=== PATIENT | male | born 1985 | race Caucasian/White ===

== ENCOUNTER 2016-03-24 08:23 | Outpatient (CLI) | payer OTHER | END 2016-03-24 08:24 | disposition home or self-care (01) | DX: M51.17 Intervertebral disc disorders with radiculopathy, lumbosacral region (principal); M43.17 Spondylolisthesis, lumbosacral region; M48.00 Spinal stenosis, site unspecified ==

== ENCOUNTER 2016-03-24 16:10 | Outpatient (CLI) | payer OTHER | END 2016-03-24 16:11 | disposition home or self-care (01) | DX: M48.00 Spinal stenosis, site unspecified (principal) ==

== ENCOUNTER 2016-05-25 17:54 | Outpatient (CLI) | payer OTHER | END 2016-05-25 17:55 | disposition home or self-care (01) | DX: K76.89 Other specified diseases of liver (principal) ==

== ENCOUNTER 2017-06-06 14:22 | Outpatient (CLI) | payer OTHER ==
[2017-06-06] MEDS ORDERED: GADOBUTROL 15 MMOL/15 ML VIAL ONE (14:47)
[2017-06-06] MEDS ORDERED: GADOBUTROL 15 MMOL/15 ML VIAL IVP ONE (15:32)
--- NOTE | 2017-06-06 18:27 | MRI Report ---
EXAM: RIGHT HAND MRI WITHOUT AND WITH CONTRAST EXAM DATE: 06/06/2017 03:41 PM. CLINICAL HISTORY: HAND SWOLLEN, POSSIBLE RA, INFLAMMATORY POLYARTHROPATHY. COMPARISON: None. TECHNIQUE: Multiplanar, multisequence T1-weighted and fluid-sensitive sequences of the hand before an d after administration of intravenous contrast. IV contrast: 12 cc Gadavist. Other: None. FINDINGS: Bones: No fractures or subluxations. No marrow edema or abnormal enhancement. No bone lesions. Cartilage: The articular cartilage is unremarkable. Ligaments: The visualized collateral ligaments are intact. Tendons: The flexor and extensor tendons are unremarkable. Musculature: No edema or fatty atrophy. Other: No joint effusions or synovitis. The subcutaneous tissues are unremarkable. No abscess or cell ulitis. Small cyst 1.2 cm transverse dimension Boehler aspect distal radius (image 1 series 601). IMPRESSION: No MRI abnormalities in the hand. [facility] SECTION Referring Provider Line: [phone] SITE ID: [id number]
== END 2017-06-06 14:23 | disposition home or self-care (01) ==
LOC: DI 14:22
PROVIDERS: ATTEND Internal Medicine Rheumatology
DX: R22.31 Localized swelling, mass and lump, right upper limb (principal)
CPT/HCPCS: 73220; A9585

== ENCOUNTER 2020-10-16 11:06 | Emergency (ER) | payer OTHER ==
[2020-10-16 11:37] VITALS: BP 178/100
--- NOTE | 2020-10-16 11:48 | ED Physician Documentation ---
History of Present Illness - Stated complaint Stated Complaint: HEMRRHOID PX - Chief complaint Chief Complaint: General - Additonal information Additional information: 34-year-old male presents the emergency department for evaluation about 24 hours acute rectal pain. He reports that 4 days ago he had a bout of bad diarrhea and did not think much of it though he did endorse some rectal tenderness. However over the last 24 hours he noticed a palpable swelling in his rectal area making it difficult to sit. He has been using Preparation H without relief. He does endorse a history of previous hemorrhoids that have resolved with Preparation H. Review of Systems Constitutional: reports: Reviewed and negative Nose: reports: Reviewed and negative Throat: reports: Reviewed and negative Cardiac: reports: Reviewed and negative Respiratory: reports: Reviewed and negative GI: reports: Diarrhea. denies: Abdominal Pain : reports: Other (Rectal pain) Skin: reports: Reviewed and negative Musculoskeletal: reports: Reviewed and negative PD PAST MEDICAL HISTORY - Past Medical History Past Medical History: Yes GI: GERD, Hemorrhoids Musculoskeletal: Chronic back pain - Past Surgical History Past Surgical History: Yes Ortho: Spine surgery - Present Medications Home Medications: Ambulatory Orders Medication Instructions Recorded Confirmed Etodolac 200 mg PO DAILY 08/06/14 08/06/14 Omeprazole 40 mg PO DAILY 08/06/14 08/06/14 methocarbamoL [Robaxin-750] 750 mg PO TID PRN #20 tablet 08/06/14 oxyCODONE [Roxicodone] 5 mg PO BID 08/06/14 08/06/14 oxyCODONE [Roxicodone] 5 mg PO BID #10 tablet 08/06/14 oxyCODONE [Roxicodone] 5 mg PO Q4-6H PRN #15 tablet 11/14/14 predniSONE [Deltasone] 60 mg PO DAILY 5 Days tablet 11/14/14 Hydrocortisone [Anusol-Hc] 30 gm RC TID #30 gm 10/16/20 - Allergies Allergies/Adverse Reactions: Allergies Allergy/AdvReac Type Severity Reaction Status Date / Time anthrax vaccine Allergy Unknown Verified 10/16/20 11:24 - Social History Does the pt smoke?: Yes Smoking Status: Current every day smoker Does the pt drink ETOH?: Yes Does the pt have substance abuse?: No - Immunizations Immunizations are current?: Yes - POLST Patient has POLST: No PD ED PE EXPANDED - General General: Alert, No acute distress - Rectal Rectal: Hemorrhoid (Large 2 cm nonthrombosed external hemorrhoid at 9oclock with pt in left lateral rectus position. Mildly tender to touch. No external e rythema noted anal fissure. No rectal bleeding.) Results - Vitals Vitals: Vital Signs - 24 hr 10/16/20 11:19 Temperature 36.8 C Heart Rate 93 Respiratory 15 Rate Blood Pressure 178/100 H O2 Saturation 99 Oxygen O2 Source Room air PD MEDICAL DECISION MAKING - ED course Complexity details: considered differential, d/w patient ED course: 34-year-old male presents emergency department for evaluation of 24 hours of rectal pain. This follows a bout of diarrhea 3 to 4 days ago. On exam he has a very large but nonthrombosed external hemorrhoid. Unfortunately we would not be able to do an excision of this today. I recommended warm sitz bath's as well as Preparation H. I also recommend increase fiber intake to prevent straining with bowel movements. I have advised him to schedule close follow-up with his PCP as he may benefit in the long-term from referral to a colorectal surgeon. We discussed that once this hemorrhoid is thrombosed he would be a good candidate for thrombectomy. Emergent return precautions were discussed. Departure - Departure Disposition: 01 Home, Self Care Clinical Impression: External hemorrhoid Condition: Stable Record reviewed to determine appropriate education?: Yes Instructions: Anusol Ointment Follow-Up: Jose Sigala ARNP [Primary Care Provider] - Prescriptions: Hydrocortisone [Anusol-Hc] 30 gm RC TID #30 gm Comments: [place] the hemorrhoid that you have has just erupted and is not yet clotted or thrombosed. In order to help manage this I would like you to take a sitz bath for 10 minutes twice a day. I also recommend that you get 25 to 30 g of fiber every day with use of Metamucil this will help soften your stools and prevent you from straining with defecation. I have prescribed hydrocortisone Anusol cream to be used 3 times a day or after each bowel movement. In some cases hemorrhoids as large as years can be excised in which we remove the clot at the bedside but yours is not yet thrombosed. If you feel that it is reach this point in 3 to 4 days you may return to the ER for a second evaluation though there is no guarantee that the provider in the ER would be able to perform this procedure. I do recommend that you have close follow-up with your primary care provider. You may benefit from referral to a colorectal surgeon for longer-term evaluation and management of your hemorrhoids. If any point you develop fevers have bloody bowel movements severe worsening p ain please return to the ER for second look.
== END 2020-10-16 12:32 | disposition home or self-care (01) ==
LOC: ED 11:06
DX: K64.4 Residual hemorrhoidal skin tags (principal); F17.200 Nicotine dependence, unspecified, uncomplicated
CPT/HCPCS: 99282

== ENCOUNTER 2021-02-10 12:49 | Outpatient (CLI) | payer OTHER | END 2021-02-10 12:50 | disposition critical access hospital (66) | LOC: EMS 12:49 | DX: R07.9 Chest pain, unspecified (principal) | CPT/HCPCS: A0425; A0427 ==

== ENCOUNTER 2021-02-10 13:10 | Emergency (ER) | payer OTHER ==
--- NOTE | 2021-02-10 13:28 | ED Physician Documentation ---
PD HPI CHEST PAIN - Stated complaint Stated Complaint: CHEST PX - Chief complaint Chief Complaint: Cardiac - History obtained from History obtained from: Patient - Additional information Additional information: 35-year-old gentleman had a breakthrough case of Covid with symptoms starting on the 10th of this month. It consisted of cough and congestion loss of taste and smell. He was quarantining. Today he was at rest and developed left upper chest tightness with feeling of rapid heart rate and shortness of breath. It is better but not gone now. He did have an episode of [facility] with subsequently negative stress testing. He did travel to [place] in the last couple of weeks. Denies pedal edema or calf pain. Review of Systems Constitutional: denies: Fever, Chills Nose: denies: Rhinorrhea / runny nose, Congestion Cardiac: reports: Chest pain / pressure, Palpitations Respiratory: reports: Dyspnea. denies: Cough PD PAST MEDICAL HISTORY - Past Medical History GI: GERD, Hemorrhoids Musculoskeletal: Chronic back pain - Past Surgical History Past Surgical History: Yes Ortho: Spine surgery - Present Medications Home Medications: Ambulatory Orders Medication Instructions Recorded Confirmed Etodolac 200 mg PO DAILY 08/06/14 08/06/14 Omeprazole 40 mg PO DAILY 08/06/14 08/06/14 methocarbamoL [Robaxin-750] 750 mg PO TID PRN #20 tablet 08/06/14 oxyCODONE [Roxicodone] 5 mg PO BID 08/06/14 08/06/14 oxyCODONE [Roxicodone] 5 mg PO BID #10 tablet 08/06/14 oxyCODONE [Roxicodone] 5 mg PO Q4-6H PRN #15 tablet 11/14/14 predniSONE [Deltasone] 60 mg PO DAILY 5 Days tablet 11/14/14 Hydrocortisone [Anusol-Hc] 30 gm RC TID #30 gm 10/16/20 - Allergies Allergies/Adverse Reactions: Allergies Allergy/AdvReac Type Severity Reaction Status Date / Time anthrax vaccine Allergy Unknown Verified 02/10/21 13:21 - Social History Does the pt smoke?: Yes Smoking Status: Current every day smoker Does the pt drink ETOH?: Yes Does the pt have substance abuse?: No - Immunizations Immunizations are current?: Yes - POLST Patient has POLST: No PD ED PE NORMAL - Vitals Vital signs reviewed: Yes - General General: Alert and oriented X 3, No acute distress - HEENT HEENT: PERRL, EOMI - Cardiac Cardiac: RRR, No murmur - Respiratory Respiratory: No respiratory distress, Clear bilaterally - Abdomen Abdomen: Normal bowel sounds, Soft, Non tender - Back Back: No CVA TTP, No spinal TTP - Derm Derm: Normal color, Warm and dry - Extremities Extremities: No edema, No calf tenderness / cord - Neuro Neuro: Alert and oriented X 3, Normal speech Results - Vitals Vitals: Vital Signs - 24 hr 02/10/21 02/10/21 02/10/21 13:19 14:00 14:30 Temperature 37.4 C Heart Rate 98 97 92 Respiratory 18 19 17 Rate Blood Pressure 162/98 H 137/97 H 145/95 H O2 Saturation 98 94 99 02/10/21 02/10/21 02/10/21 15:00 15:46 16:30 Temperature Heart Rate 95 90 81 Respiratory 18 20 19 Rate Blood Pressure 161/111 H 145/99 H 141/93 H O2 Saturation 97 99 100 02/10/21 17:00 Temperature Heart Rate 84 Respiratory 14 Rate Blood Pressure 140/91 H O2 Saturation 99 Oxygen O2 Source Room air - EKG (time done) 1314 Rate: Rate (enter#) (98) Rhythm: NSR [place]: Normal Intervals: Normal PA QRS: Normal Ischemia: Non specific changes. No: ST elevation c/w ischemia, ST depression Compare to prior EKG: Old EKG unavailable Computer interpretation: Agree with computer - Labs Labs: Laboratory Tests 02/10/21 02/10/21 02/10/21 14:08 14:08 14:08 WBC 7.0 RBC 4.18 L Hgb 12.8 L Hct 36.7 L MCV 87.8 MCH 30.6 MCHC 34.9 RDW 12.5 Plt Count 189 MPV 10.9 Neut # (Auto) 5.1 Lymph # (Auto) 1.3 L [place] # (Auto) 0.5 Eos # (Auto) 0.1 Baso # (Auto) 0.0 Absolute Nucleated RBC 0.00 Nucleated RBC % 0.0 Sodium 140 Potassium 3.7 Chloride 101 Carbon Dioxide 26 Anion Gap 13.0 BUN 13 Creatinine 0.7 Estimated GFR (MDRD) 128 Glucose 140 H Calcium 9.2 Troponin I High Sens 4.1 PD MEDICAL DECISION MAKING - ED course ED course: 35-year-old gentleman with atypical chest pain, he does use tobacco via vape and is obese so has a couple of risk factors for coronary disease. More worrisome frankly though is the potential for PE given the recent Covid and sudden onset of his symptoms at rest as well is mild tachycardia. Received aspirin prior to arrival. CT angiography troponin and EKG were unremarkable. I was discussing this with him. We did discuss his prior work-up at the [facility] a few months ago for chest pain. He says he had a negative stress test but subsequently was told that it was angina and there was a blockage somewhere. That said despite that he was not referred to cardiology. That said his work-up tonight is negative with negative biomarkers and EKG. CT angiography of the chest was negative for PE. On further discussion he was drinking fairly heavily last night and I wonder if this may be gastritis related to that and he is already taking a PPI and advised to decrease alcohol use. Departure - Departure Disposition: 01 Home, Self Care Clinical Impression: Chest pain Qualifiers: Chest pain type: intercostal pain Qualified Code(s): R07.82 - Intercostal pain Condition: Good Record reviewed to determine appropriate education?: Yes Instructions: ED Chest Pain Atypical Unkn Cause Comments: CT angiography of your chest was negative for blood clot. There was a tiny area that likely represents persistent Covid pneumonia but not big enough to worry about. No evidence of ischemic heart disease on EKG or troponin testing. As discussed, I would call your primary care physician tomorrow and have them review the [facility]. Since you were told your stress test was positive but not necessary to follow-up with cardiology that seems antithetical to usual standard of care. My suspicion is your stress test was actually negative given the lack of follow-up necessary though. Return if worsening.
[2021-02-10] MEDS ORDERED: IOPAMIDOL-300 100 ML VIAL ONE (13:35)
[2021-02-10 14:23] LABS: BASOPHILS % (AUTO) 0.6 %; EOSINOPHILS # (AUTO) 0.1 10^3/uL (0.0-0.7); EOSINOPHILS % (AUTO) 1.4 %; HCT - HEMATOCRIT 36.7 % (42.0-52.0); HGB - HEMOGLOBIN 12.8 g/dL (14.0-18.0); LYMPHOCYTES # (AUTO) 1.3 10^3/uL (1.5-3.5); LYMPHOCYTES % (AUTO) 18.7 %; MEAN CORPUSCULAR HEMOGLOBIN 30.6 pg (27.0-31.0); MEAN CORPUSCULAR HGB CONC 34.9 g/dL (32.0-36.0); MEAN CORPUSCULAR VOLUME 87.8 fL (80.0-94.0); MEAN PLATELET VOLUME 10.9 fL (7.4-11.4); MONOCYTES # (AUTO) 0.5 10^3/uL (0.0-1.0); MONOCYTES % (AUTO) 6.6 %; NEUTROPHILS # (AUTO) 5.1 10^3/uL (1.5-6.6); NEUTROPHILS % (AUTO) 72.3 %; PLT - PLATELET COUNT 189 10^3/uL (130-450); RED BLOOD COUNT 4.18 10^6/uL (4.70-6.10); RED CELL DISTRIBUTION WIDTH 12.5 % (12.0-15.0)
[2021-02-10 14:42] LABS: CALCIUM 9.2 mg/dL (8.5-10.3); CREATININE 0.7 mg/dL (0.6-1.2); POTASSIUM 3.7 mmol/L (3.5-5.0)
--- NOTE | 2021-02-10 16:57 | CT Report ---
PROCEDURE: ANGIO CHEST W/WO INDICATIONS: chest pain, recent covid, PE protocol CONTRAST: IV CONTRAST: Isovue 300 ml: 80 PO CONTRAST: *NO PO CONTRAST TECHNIQUE: After the administration of intravenous contrast, 2 mm axial images were acquired from the pulmonary apices to the posterior costophrenic angles during the arterial phase. In addition, 1 mm lung kernel and 5 mm soft tissue kernel reconstructions were performed. 3-dimensional coronal oblique maximum int ensity projection (MIP) reformats, 8 mm axial MIP, and 5 mm coronal and sagittal MPR reformats were t hen performed through the thorax. For radiation dose reduction, the following was used: automated exp osure control, adjustment of mA and/or kV according to patient size. COMPARISON: None FINDINGS: Image quality: Excellent. Pulmonary arteries: Pulmonary arteries are normal in size, and demonstrate no intraluminal filling d efects to suggest central pulmonary embolism. Lungs and pleura: There is a small subpleural right lateral lower lobe groundglass nodule, 6/205. No other groundglass opacities. No dense consolidations. No pleural effusions or pneumothorax. Centr al and peripheral airways are patent. Mediastinum: Heart size is normal, without pericardial effusion. No mediastinal or hilar adenopathy . Thoracic aorta is normal in caliber and enhancement. Esophagus is normal in caliber, without hiat al hernia. Bones and chest wall: No suspicious bony lesions. Ribs and thoracic spine appear intact throughout. No axillary or supraclavicular adenopathy. The thyroid is normal in size and there are no incident al findings. Abdomen: Visualized upper abdominal solid organs appear normal in the early arterial phase of enhanc ement. IMPRESSION: 1. No pulmonary embolus. 2. Single small groundglass nodule in the right lower lobe. Otherwise clear lungs without evidence of residual infection. Reviewed by: Amanda Shen MD on 02/10/2021 4:56 PM PST Approved by: Amanda Shen MD on 02/10/2021 4:56 PM PST Station ID: [id number]
[2021-02-10] MEDS ORDERED: LORazepam 1 MG TABLET PO STA (17:35)
[2021-02-10 18:08] VITALS: BP 148/91
[2021-02-10] MEDS ORDERED: IOPAMIDOL-300 100 ML VIAL IVP ONE (20:34)
== END 2021-02-10 18:21 | disposition home or self-care (01) ==
LOC: EDUNIT# → ED 13:10
DX: R07.82 Intercostal pain (principal); F17.200 Nicotine dependence, unspecified, uncomplicated; E66.9 Obesity, unspecified
CPT/HCPCS: 36415; 71275; 80048; 84484; 85025; 93005; 99283; 99284; J8499; Q9967

== ENCOUNTER 2022-01-20 12:43 | Emergency (ER) | payer OTHER ==
[2022-01-20 12:54] VITALS: BP 157/103
[2022-01-20 13:10] LABS: BASOPHILS # (AUTO) 0.1 10^3/uL (0.0-0.1); BASOPHILS % (AUTO) 1.1 %; EOSINOPHILS # (AUTO) 0.1 10^3/uL (0.0-0.7); EOSINOPHILS % (AUTO) 1.9 %; HCT - HEMATOCRIT 42.8 % (42.0-52.0); HGB - HEMOGLOBIN 14.5 g/dL (14.0-18.0); LYMPHOCYTES # (AUTO) 1.1 10^3/uL (1.5-3.5); LYMPHOCYTES % (AUTO) 17.6 %; MEAN CORPUSCULAR HEMOGLOBIN 30.8 pg (27.0-31.0); MEAN CORPUSCULAR HGB CONC 33.9 g/dL (32.0-36.0); MEAN CORPUSCULAR VOLUME 90.9 fL (80.0-94.0); MEAN PLATELET VOLUME 11.1 fL (7.4-11.4); MONOCYTES # (AUTO) 0.5 10^3/uL (0.0-1.0); MONOCYTES % (AUTO) 7.3 %; NEUTROPHILS # (AUTO) 4.7 10^3/uL (1.5-6.6); NEUTROPHILS % (AUTO) 71.9 %; PLT - PLATELET COUNT 183 10^3/uL (130-450); RED BLOOD COUNT 4.71 10^6/uL (4.70-6.10); RED CELL DISTRIBUTION WIDTH 11.9 % (12.0-15.0); WHITE BLOOD COUNT 6.5 x10^3/uL (4.8-10.8)
[2022-01-20 13:23] LABS: ALBUMIN 4.1 g/dL (3.2-5.5); ALBUMIN/GLOBULIN RATIO 1.1 (1.0-2.2); BILIRUBIN,TOTAL 1.3 mg/dL (0.2-1.0); CALCIUM 9.1 mg/dL (8.5-10.3); CREATININE 0.7 mg/dL (0.6-1.2); POTASSIUM 3.9 mmol/L (3.5-5.0); TOTAL PROTEIN 7.9 g/dL (6.7-8.2)
--- NOTE | 2022-01-20 13:30 | ED Physician Documentation ---
PD HPI ABD PAIN - Stated complaint Stated Complaint: COUGH/ABD PX - Chief complaint Chief Complaint: Abd Pain - History obtained from History obtained from: Patient - Additional information Additional information: This a very nice 36-year-old male with a past medical history of obesity who presents with right lower abdominal wall tenderness. The patient states he has a chronic cough due to some postnasal drip issues and is frequently coughing over the Past couple days, has had some strong coughing fits. He is not here for his cough but he states during that time he had a sharp pain in the right lower quadrant. He now feels each time he coughs or takes a deep breath. The pain has somewhat migrated into the right groin but he is noticed no scrotal pain or swelling, no penile pain, no urinary symptoms. He has not had any nausea, vomiting, fever. He is tolerating p.o. well, regular urine output, regular stools. He denies any chest pain or shortness of breath and states this cough is chronic for him. Patient does note that he is an a rehab program for alcohol abuse. He has a history of elevated liver function testing. Review of Systems Ten Systems: 10 systems reviewed and negative (except as per HPI) PD PAST MEDICAL HISTORY - Past Medical History Past Medical History: Yes Cardiovascular: Angina GI: GERD, Hemorrhoids Musculoskeletal: Chronic back pain Other Past Medical History: Alcohol abuse - Past Surgical History Past Surgical History: Yes Ortho: Spine surgery - Present Medications Home Medications: Ambulatory Orders Medication Instructions Recorded Confirmed Etodolac 200 mg PO DAILY 08/06/14 08/06/14 Omeprazole 40 mg PO DAILY 08/06/14 08/06/14 methocarbamoL [Robaxin-750] 750 mg PO TID PRN #20 tablet 08/06/14 oxyCODONE [Roxicodone] 5 mg PO BID 08/06/14 08/06/14 oxyCODONE [Roxicodone] 5 mg PO BID #10 tablet 08/06/14 oxyCODONE [Roxicodone] 5 mg PO Q4-6H PRN #15 tablet 11/14/14 predniSONE [Deltasone] 60 mg PO DAILY 5 Days tablet 11/14/14 Hydrocortisone [Anusol-Hc] 30 gm RC TID #30 gm 10/16/20 - Allergies Allergies/Adverse Reactions: Allergies Allergy/AdvReac Type Severity Reaction Status Date / Time gabapentin AdvReac Hallucinati Verified 01/20/22 12:54 ons - Social History Does the pt smoke?: Yes Smoking Status: Current every day smoker Does the pt drink ETOH?: Yes Does the pt have substance abuse?: No - Immunizations Immunizations are current?: Yes - POLST Patient has POLST: No PD ED PE NORMAL - Vitals Vital signs reviewed: Yes - General General: Alert and oriented X 3, No acute distress, Well developed/nourished - HEENT HEENT: Atraumatic, Moist mucous membranes, Pharynx benign - Neck Neck: Supple, no meningeal sign, No JVD - Cardiac Cardiac: RRR, No murmur, No gallop, No rub - Respiratory Respiratory: No respiratory distress, Clear bilaterally - Abdomen Abdomen: Normal bowel sounds, Soft, Non distended, Other (mild RLQ ttp Without guarding, no palpated hernia. No right upper quadrant tenderness, no tenderness at McBurney's point) - Derm Derm: Normal color, Warm and dry, No rash - Neuro Neuro: Alert and oriented X 3 Eye Opening: Spontaneous Motor: Obeys Commands Verbal: Oriented GCS Score: 15 Results - Vitals Vitals: Vital Signs - 24 hr 01/20/22 12:49 Temperature 36.7 C Heart Rate 92 Respiratory 14 Rate Blood Pressure 157/103 H O2 Saturation 98 Oxygen O2 Source Room air - Labs Labs: Laboratory Tests 01/20/22 01/20/22 13:04 13:04 WBC 6.5 RBC 4.71 Hgb 14.5 Hct 42.8 MCV 90.9 MCH 30.8 MCHC 33.9 RDW 11.9 L Plt Count 183 MPV 11.1 Neut # (Auto) 4.7 Lymph # (Auto) 1.1 L [place] # (Auto) 0.5 Eos # (Auto) 0.1 Baso # (Auto) 0.1 Absolute Nucleated RBC 0.00 Nucleated RBC % 0.0 Sodium 135 Potassium 3.9 Chloride 96 L Carbon Dioxide 27 Anion Gap 12.0 BUN 8 Creatinine 0.7 Estimated GFR (MDRD) 128 Glucose 243 H Calcium 9.1 Total Bilirubin 1.3 H AST 285 H ALT 294 H Alkaline Phosphatase 75 Total Protein 7.9 Albumin 4.1 Globulin 3.8 Albumin/Globulin Ratio 1.1 Lipase 84 H PD MEDICAL DECISION MAKING - ED course Complexity details: reviewed results, re-evaluated patient, considered differential, d/w patient ED course: This is a very pleasant 36-year-old male who presented with right lower quadrant pain after coughing fits that has migrated into the right groin area. He has no other symptoms to suggest infection such as fever, nausea, vomiting, urinary symptoms, bowel changes. He is well-appearing on physical exam. We obtained labs which are stable aside from mildly elevated LFTs which patient states is normal for him with his history of alcoholism. He has no right upper quadrant pain in any case. I have a suspicion for appendicitis as patient has no fever, no nausea, vomiting or difficulty with p.o. and the pain is lower in the right quadrant. I suspect this is a muscle strain but we did obtain an ultrasound to rule out hernia and there is no visible hernia in that area. Patient was advised that he can try supportive measures including Tylenol or ibuprofen though limit the doses, may use a cool compress and avoid lifting or abdominal loss dress in the next couple of weeks. I reviewed return precautions if new or worsening symptoms. Departure - Departure Disposition: 01 Home, Self Care Clinical Impression: Elevated liver function tests Abdominal wall strain Qualifiers: Encounter type: initial encounter Qualified Code(s): S39.011A - Strain of muscle, fascia and tendon of abdomen, initial encounter Condition: Good Instructions: ED Strain Abdominal Muscle Comments: The US did not show a hernia and I suspect this is an abdominal wall strain. You do not have other signs of infectious etiology such as fever, vomiting, or b owel/bladder symptoms. Your liver function tests were mildly elevated. This can occur in viral illnesses, alcohol use, liver disease. You have no symptoms related to this so recommend you just follow-up with your primary doctor in the next couple weeks for repeat testing. Avoid alcohol if you can and limit any Tylenol intake to 2 g a day total.
--- NOTE | 2022-01-20 15:53 | Ultrasound Report ---
PROCEDURE: Abdomen Limited INDICATIONS: abd wall hernia suspected, RLQ TECHNIQUE: Real-time focused scanning was performed of the abdomen, with image documentation. COMPARISON: None FINDINGS: There is no hernia visualized in the right lower quadrant in the area of pain. IMPRESSION: No sonographic findings to explain right lower quadrant pain. No hernia visualized. Reviewed by: Akua Haque MD on 01/20/2022 3:52 PM [facility] Approved by: Akua Haque MD on 01/20/2022 3:52 PM [facility] Station ID: [id number]
== END 2022-01-20 16:21 | disposition home or self-care (01) ==
LOC: ED 12:43
DX: S39.011A Strain of muscle, fascia and tendon of abdomen, initial encounter (principal); X58.XXXA Exposure to other specified factors, initial encounter; Y93.89 Activity, other specified; R94.5 Abnormal results of liver function studies; F10.10 Alcohol abuse, uncomplicated; F17.200 Nicotine dependence, unspecified, uncomplicated
CPT/HCPCS: 36415; 80053; 83690; 85025; 99282; 99284